=== PATIENT | female | born 1950 | race Caucasian/White ===

== ENCOUNTER → 2024-04-06 13:30 | Outpatient (REF) | payer MEDICARE, SELFPAY | LOC: RAD 13:30 | PROVIDERS: ATTENDING PHYSICIAN Physician Assistant Medical | DX: R10.32 Left lower quadrant pain (principal) | CPT/HCPCS: 74178; Q9967 ==

== ENCOUNTER → 2024-12-08 11:15 | Outpatient (REF) | payer MEDICARE, SELFPAY | LOC: WDC 11:15 | PROVIDERS: ATTENDING PHYSICIAN Physician Assistant Medical | DX: M81.0 Age-related osteoporosis without current pathological fracture (principal); Z12.31 Encounter for screening mammogram for malignant neoplasm of breast | CPT/HCPCS: 77063; 77067; 77080 ==

== ENCOUNTER 2025-02-27 04:46 | Inpatient (IN) | payer MEDICARE, SELFPAY ==
[2025-02-27] VITALS (13 sets, daily range): BP systolic 72–174; BP diastolic 52–84; BMI 28.3; BMI 29.2; BMI 29.4
--- NOTE | 2025-02-27 01:36 | ED.GENMED ---
History of Present Illness
<Barbara Bradley PA-C - Last Filed: 02/27/25 06:46>
General
Chief Complaint: Abdominal Pain
Source: patient
Exam Limitations: none
Time Seen by Provider: 02/27/25 01:35
Nursing documentation reviewed up to this point in time: agreed with
History of Present Illness
History of Present Illness:
74-year-old female with past medical history of diverticulitis, high blood pressure, presents to the ER today with concerns of left lower quadrant abdominal pain. She reports that this started yesterday afternoon. She describes the pain as similar
to previous episode of diverticulitis. During a time, she was treated for amoxicillin for 10 days and she reports that she had leftover pills from previous episode and she started taking it and reported mild improvement but then her pain got a lot
worse and she could not sleep. She reported some mild relief with a heating pad. She denies any rectal bleeding, dark tarry stools, urinary symptoms, chest pain, shortness of breath. She denies any flank pain. She reports decrease in appetite
and has not been eating much, she reports that she has been trying to stick to a bland diet. She mentions feeling cold intermittently but denies any fever. Atrial fibrillation was documented in her chart however patient denies any history of this.
Past History
<Barbara Bradley PA-C - Last Filed: 02/27/25 06:46>
Past History
ED Past Medical History: Arrthythmia (afib), HTN and Hypercholesterolemia
Social History
Tobacco: Smoker
Alcohol: Occasional
Personal:
Living: with family
Review of Systems
<Barbara Bradley PA-C - Last Filed: 02/27/25 06:46>
Review of Systems
All Other Systems: ROS reviewed and negative except as documented in HPI and ROS
Phy Exam
<Barbara Bradley PA-C - Last Filed: 02/27/25 06:46>
Physical Exam
Physical Exam:
General: Patient is well appearing and in no acute distress; non-toxic
Skin: Warm and dry, no rashes or lesions
Head: Normocephalic, atraumatic
Eyes: Sclera non-icteric. EOMs intact.
Cardiac: Regular rate and rhythm, no murmurs
Pulm: Normal respiratory effort, no wheezes, rales, and rhonchi
Abdomen: LLQ tenderness to palpation with guarding no rebound tenderness
Neuro: CN II-XII intact, no focal neurologic deficits.
Psychiatric: Appropriate mood and affect.
Sepsis
<Barbara Bradley PA-C - Last Filed: 02/27/25 06:46>
Sepsis Screening
Sepsis Assessment: Sepsis
Sepsis Screen
Sepsis Screen: Sepsis
Date: 02/27/25
Time: 06:46
Course
<Barbara Bradley PA-C - Last Filed: 02/27/25 06:46>
Orders/Labs/Results
Orders:
Orders
02/27/25 01:51
CT Abd/Pel (IV only)-DH only Urgent
Comment:
Reason For Exam: LLQ pain
02/27/25 01:54
Ketorolac [Toradol] 15 mg IV NOW STA
02/27/25 01:56
0.9% Sodium Chloride 500 ml [Nss] 500 ml IV BOLUS
02/27/25 02:04
Complete Blood Count/With Diff Urgent
Comprehensive Metabolic Panel Urgent
Lipase Urgent
02/27/25 03:59
0.9% Sodium Chloride 500 ml [Nss] 500 ml IV BOLUS
Piperacillin/Tazo 4.5 Gram [Zosyn] 4.5 gram in 100 ml IV NOW
02/27/25 04:33
Admit/Transfer Patient As Directed
Co-Sign Provider:
Level of Care: Inpatient admission
Assign to:: Telemetry
Physician / Group: Phil
Diagnosis: Acute Sigmoid Diverticulitis, L Adnexal Abscess
Reason for Telemetry: Arrhythmia
Date to Stop Telemetry: 03/02/25
Time to Stop Telemetry: 11:00
Reason for Hospitalization: Acute Sigmoid Diverticulitis, L Adnexal Abscess
Expected length of stay greater than two midnights?: Yes
ELOS- Estimated Length of Stay in days: 4
I certify the patient meets the requirements for IP care: Yes
PRN Pain Medication Management As Directed
May give lesser potent ordered pain med per pt: Yes
preference::
Protocol:: Medication orders for pain may be administered in a
manner that supports deferring to patient preference
when the pt is:
- Requesting an ordered lesser potent pain medication.
Least to most potent pain medications are defined
as: acetaminophen < NSAID < tramadol < opioids
(morphine, oxycodone, hydromorphone).
- Requesting a lesser dose of the same medication IF
ORDERED.
- Requesting a less intrusive route of administration
if both routes are prescribed by the provider (PO <
IV).
02/27/25 04:34
Code Status As Directed
Resuscitation Status: Do not resuscitate
Reached after discussion with pt or family/Healthcare POA: Yes
02/27/25 04:35
DNR Bracelet Application ONCE
02/27/25 04:56
Acetaminophen [Tylenol] 650 mg PO Q4HPRN PRN
HYDROmorphone [Dilaudid] 0.5 mg IV Q4HPRN PRN
02/27/25 04:56
ColoRectal Surgery Consult Routine
Consulting Provider: Vasu Junior
Was physician already notified: Yes
Reason for consult: Acute Sigmoid Diverticulitis, L Adnexal Abscess
CUTTING DEPARTMENT SUPERVISOR CONSULT Routine
Consulting Provider: Brielle Gunderson
Was physician already notified: Yes
Reason for consult: Acute Sigmoid Diverticulitis, L Adnexal Abscess
Activity As Directed
Activity Level: Ambulate
With Assistance
EKG with chest pain [ECG as needed] As Directed
ECG as needed for:: Chest Pain
I/O [Intake/ Output] As Directed
Frequency: Per unit guidelines
Pneumatic Compression Sleeves As Directed
Type: Knee high
Vital Signs As Directed
Frequency: Per unit guidelines
Weight As Directed
Frequency: Daily
Oxygen Therapy [O2 Therapy] [RESP] Routine
Titrate/Wean O2 to maintain O2 sat greater than (%): 94
DX Deep Vein Thrombosis Video Routine
02/27/25 05:00
Lactated Ringers [Lr] 1,000 ml IV 100 mls/hr
02/27/25 05:24
Urinalysis Reflex To Culture Urgent
Date Specimen was Collected: 02/27/25
Time Specimen was Collected: 01:58
02/27/25 Breakfast
NPO
Allow oral meds: Yes
Allow clear liquids: Sips of Clears
02/27/25 08:00
Atenolol [Tenormin] 100 mg PO DAILY
Atorvastatin [Lipitor] 20 mg PO DAILY
Ketorolac [Toradol] 10 mg IV Q6HPRN PRN
Losartan [Cozaar] 50 mg PO DAILY
02/27/25 10:00
Piperacillin/Tazo 3.375 Gram [Zosyn] 3.375 gram in 50 ml IV Q6H
02/27/25 18:00
Enoxaparin Sodium [Lovenox] 40 mg SC QPM
02/28/25 06:00
Basic Metabolic Panel IN AM
Complete Blood Count/No Diff IN AM
03/02/25 11:00
DC Protocol for Telemetry ONCE
Abnormal Lab Results
02/27/25
02:04
WBC 23.8 H 10^3/uL
(4.8-10.8)
MCHC 32.9 L g/dL
(33.0-37.0)
MPV 10.8 H fL
(7.4-10.4)
Abs Immat Gran (auto) 0.2 H 10^3/uL
(0-0.05)
Absolute Neuts (auto) 20.1 H 10^3/uL
(1.4-6.5)
Absolute Monos (auto) 1.5 H 10^3/uL
(0.1-0.6)
Immature Gran % 0.6 H %
(0-0.5)
Neutrophils % 84.7 H %
(42.2-75.2)
Lymphocytes % 7.8 L %
(20.5-51.1)
Sodium 131 L mmol/L
(135-145)
Chloride 97 L mmol/L
(98-107)
BUN 18 H mg/dl
(7-17)
Creatinine 1.1 H mg/dL
(0.6-1.0)
Glucose 108 H mg/dl
(70-99)
02/27/25 02:04
02/27/25 02:04
Vital Signs
Initial and Last Documented VS:
Initial Vital Signs
Temp Pulse Resp BP Pulse Ox
98.2 F 96 20 174/84 95
02/27/25 01:31 02/27/25 01:31 02/27/25 01:31 02/27/25 01:31 02/27/25 01:31
Last Documented Vital Signs
Temp Pulse Resp BP Pulse Ox
98.2 F 73 14 112/54 96
02/27/25 01:31 02/27/25 06:30 02/27/25 06:30 02/27/25 05:00 02/27/25 06:30
<Toni Mendosa Michelle, DO - Last Filed: 02/27/25 04:05>
Orders/Labs/Results
Orders:
Orders
02/27/25 01:51
CT Abd/Pel (IV only)-[facility] only Urgent
Comment:
Reason For Exam: LLQ pain
02/27/25 01:54
Ketorolac [Toradol] 15 mg IV NOW STA
02/27/25 01:56
0.9% Sodium Chloride 500 ml [Nss] 500 ml IV BOLUS
02/27/25 02:04
Complete Blood Count/With Diff Urgent
Comprehensive Metabolic Panel Urgent
Lipase Urgent
02/27/25 03:59
0.9% Sodium Chloride 500 ml [Nss] 500 ml IV BOLUS
Piperacillin/Tazo 4.5 Gram [Zosyn] 4.5 gram in 100 ml IV NOW
02/27/25 04:33
Admit/Transfer Patient As Directed
Co-Sign Provider:
Level of Care: Inpatient admission
Assign to:: Telemetry
Physician / Group: Phil
Diagnosis: Acute Sigmoid Diverticulitis, L Adnexal Abscess
Reason for Telemetry: Arrhythmia
Date to Stop Telemetry: 03/02/25
Time to Stop Telemetry: 11:00
Reason for Hospitalization: Acute Sigmoid Diverticulitis, L Adnexal Abscess
Expected length of stay greater than two midnights?: Yes
ELOS- Estimated Length of Stay in days: 4
I certify the patient meets the requirements for IP care: Yes
PRN Pain Medication Management As Directed
May give lesser potent ordered pain med per pt: Yes
preference::
Protocol:: Medication orders for pain may be administered in a
manner that supports deferring to patient preference
when the pt is:
- Requesting an ordered lesser potent pain medication.
Least to most potent pain medications are defined
as: acetaminophen < NSAID < tramadol < opioids
(morphine, oxycodone, hydromorphone).
- Requesting a lesser dose of the same medication IF
ORDERED.
- Requesting a less intrusive route of administration
if both routes are prescribed by the provider (PO <
IV).
02/27/25 04:34
Code Status As Directed
Resuscitation Status: Do not resuscitate
Reached after discussion with pt or family/Healthcare POA: Yes
02/27/25 04:35
DNR Bracelet Application ONCE
02/27/25 04:56
Acetaminophen [Tylenol] 650 mg PO Q4HPRN PRN
HYDROmorphone [Dilaudid] 0.5 mg IV Q4HPRN PRN
02/27/25 04:56
ColoRectal Surgery Consult Routine
Consulting Provider: Vasu Junior
Was physician already notified: Yes
Reason for consult: Acute Sigmoid Diverticulitis, L Adnexal Abscess
CUTTING DEPARTMENT SUPERVISOR CONSULT Routine
Consulting Provider: Brielle Gunderson
Was physician already notified: Yes
Reason for consult: Acute Sigmoid Diverticulitis, L Adnexal Abscess
Activity As Directed
Activity Level: Ambulate
With Assistance
EKG with chest pain [ECG as needed] As Directed
ECG as needed for:: Chest Pain
I/O [Intake/ Output] As Directed
Frequency: Per unit guidelines
Pneumatic Compression Sleeves As Directed
Type: Knee high
Vital Signs As Directed
Frequency: Per unit guidelines
Weight As Directed
Frequency: Daily
Oxygen Therapy [O2 Therapy] [RESP] Routine
Titrate/Wean O2 to maintain O2 sat greater than (%): 94
DX Deep Vein Thrombosis Video Routine
02/27/25 05:00
Lactated Ringers [Lr] 1,000 ml IV 100 mls/hr
02/27/25 05:24
Urinalysis Reflex To Culture Urgent
Date Specimen was Collected: 02/27/25
Time Specimen was Collected: 01:58
02/27/25 Breakfast
NPO
Allow oral meds: Yes
Allow clear liquids: Sips of Clears
02/27/25 08:00
Atenolol [Tenormin] 100 mg PO DAILY
Atorvastatin [Lipitor] 20 mg PO DAILY
Ketorolac [Toradol] 10 mg IV Q6HPRN PRN
Losartan [Cozaar] 50 mg PO DAILY
02/27/25 10:00
Piperacillin/Tazo 3.375 Gram [Zosyn] 3.375 gram in 50 ml IV Q6H
02/27/25 18:00
Enoxaparin Sodium [Lovenox] 40 mg SC QPM
02/28/25 06:00
Basic Metabolic Panel IN AM
Complete Blood Count/No Diff IN AM
03/02/25 11:00
DC Protocol for Telemetry ONCE
Abnormal Lab Results
02/27/25
02:04
WBC 23.8 H 10^3/uL
(4.8-10.8)
MCHC 32.9 L g/dL
(33.0-37.0)
MPV 10.8 H fL
(7.4-10.4)
Abs Immat Gran (auto) 0.2 H 10^3/uL
(0-0.05)
Absolute Neuts (auto) 20.1 H 10^3/uL
(1.4-6.5)
Absolute Monos (auto) 1.5 H 10^3/uL
(0.1-0.6)
Immature Gran % 0.6 H %
(0-0.5)
Neutrophils % 84.7 H %
(42.2-75.2)
Lymphocytes % 7.8 L %
(20.5-51.1)
Sodium 131 L mmol/L
(135-145)
Chloride 97 L mmol/L
(98-107)
BUN 18 H mg/dl
(7-17)
Creatinine 1.1 H mg/dL
(0.6-1.0)
Glucose 108 H mg/dl
(70-99)
02/27/25 02:04
02/27/25 02:04
Vital Signs
Initial and Last Documented VS:
Initial Vital Signs
Temp Pulse Resp BP Pulse Ox
98.2 F 96 20 174/84 95
02/27/25 01:31 02/27/25 01:31 02/27/25 01:31 02/27/25 01:31 02/27/25 01:31
Last Documented Vital Signs
Temp Pulse Resp BP Pulse Ox
98.2 F 73 14 112/54 96
02/27/25 01:31 02/27/25 06:30 02/27/25 06:30 02/27/25 05:00 02/27/25 06:30
Stevenlt;Barbara Bradley PA-C - Last Filed: 02/27/25 06:46>
MDM/Problems Addressed
Differential Diagnosis Includes:
ddx include perforated diverticulitis, intra-abdominal abscess, appendicitis, gastroenteritis
MDM/Problems Addressed:
74-year-old female presents to the ER today with concerns of left lower quad abdominal pain. Patient states it feels like when she had diverticulitis. Patient has had a hysterectomy and she is not sure if they took the ovaries or not. She denies
any other intra-abdominal surgery. Physical exam, patient well-appearing no acute distress. She is afebrile. She does have left lower quadrant tenderness to palpation with guarding. CT scan shows evidence of intra abdominal abscess with acute
diverticulitis with adnexal abscess likely related to perforated diverticulitis. Patient started Zosyn. Case sent over to colorectal and gynecology via [facility] text who are aware of patient and will see patient in the morning for consultation.
Patient symptoms well-controlled at this time. Patient referred for admission
Chronic conditions affecting care:
A-fib, hypertension
<Barbara Bradley PA-C - Last Filed: 02/27/25 06:46>
*Pulse Oximetry
SaO2: 95
Oxygen Mode of Delivery: Room air
Patient hypoxic: no
*Critical Care Note
Total Time (30-74mins, 75-104mins- exclusive of procedures): Not Applicable
Data Reviewed
Review of Other/Old Records Reveals: Records (Reviewed ER physician 01/19/22)
Source: patient
ED Attending Note
<Barbara Bradley PA-C - Last Filed: 02/27/25 06:46>
-
Portions of this chart may have been created with voice recognition software.� Occasional wrong word or��sound alike� substitutions may have occurred due to the inherent limitations of voice recognition software.
<Toni Martinez DO - Last Filed: 02/27/25 04:05>
ED Attending Note
Patient seen and examined by attending physician: Yes
I performed the substantive portion of visit, reviewed & personally made and approve the management plan that is documented in note by myself or URI.: Yes
ED Attending Note:
I evaluated the patient at bedside. She appears fairly comfortable currently however CT imaging is concerning for abscess left lower quadrant near the sigmoid/ovary. White count 23.8. Pending IV antibiotics/admission.
Discharge Plan
Departure
Patient Disposition: Admit
Date of Disposition: 02/27/25
Time of Disposition: 04:05
Admit to: Med/Surg
Presentation/result/management discussed w/ accepting MD/DO: Hospitalist
Patient with high blood pressure during this ER visit?: Yes
Condition: Good
Discharge Problem:
Diverticulitis of colon with perforation, Left tubo-ovarian abscess
Interventions
Interventions:
*Risk Screen - Suicide Last Done: 02/27/25 01:31
*General Assessment Last Done: 02/27/25 01:52
*Neglect/Abuse Screening Last Done: 02/27/25 01:52
*ED COVID-19 Vaccine History Last Done: 02/27/25 01:52
*ED Influenza Vaccine History Last Done: 02/27/25 01:52
[facility] Fall Risk Assessment Tool Last Done: 02/27/25 01:52
[facility]rmel[facility]-[id number] Assessment Last Done: 02/27/25 01:52
[2025-02-27] MEDS: TORADOL 15 MG IV (02:06)
[2025-02-27] MEDS: NSS 500 IV ×2 (02:06→03:10)
[2025-02-27 02:41] LABS: Hematocrit 40.7 % (37.0-47.0); Hemoglobin 13.4 g/dL (12.0-16.0); Mean Corp Hgb Conc. 32.9 g/dL (33.0-37.0); Mean Corpuscular Volume 87.3 fL (81.0-99.0); Platelet Count 281 10^3/uL (130-400); Red Cell Dist. Width 14.2 % (11.5-14.5)
[2025-02-27 03:00] LABS: ALT (SGPT) 14 U/L (0-35); AST (SGOT) 17 U/L (14-36); Albumin 3.8 g/dl (3.5-5.0); Alkaline Phosphatase 106 U/L (38-126); Blood Urea Nitrogen 18 mg/dl (7-17); Calcium 8.5 mg/dl (8.4-10.2); Carbon Dioxide 23 mmol/L (22-30); Chloride 97 mmol/L (98-107); Estimated Creatinine Clearance 41 ml/min; Glucose 108 mg/dl (70-99); Lipase 132 U/L (23-300); Potassium 3.5 mmol/L (3.5-5.1); Sodium 131 mmol/L (135-145); Total Protein 6.8 g/dl (6.3-8.2); eGFR 52.73
[2025-02-27] MEDS: ZOSYN 100 IV (04:14)
--- NOTE | 2025-02-27 04:24 | HPS.HSE ---
Family Physician
-
Family Physician: Sonia Barnett
Chief Complaint
-
Abd Pain
History of Present Illness
Patient is a 74y F with PMH significant for hypertension and diverticular disease who presents to ED complaining of LLQ abdominal pain. Patient states that she developed pain on Thursday afternoon. Pain in the LLQ with some radiation into the L
lower back. Patient denies any associated N/V/D, fevers / chills or urinary complaints. Patient reports h/o similar symptoms in March of this year which improved with (almost) 10 days of oral antibiotics.
Patient states that she started taking the abx (Augmentin) that she had 'left over' when this pain began. She states that she took 2-3 doses total. She noted no significant improvement in her symptoms and presented to the ED this evening for
further evaluation.
At the time of my examination, patient is resting comfortably and has no residual pain after IV Toradol.
Medical History
Past Medical History
Past Medical History: Reports Other
Additional Past Medical History:
Hypertension
Osteoporosis
Diverticular Disease
Skin Cancer
Past Surgical History: Reports Other
Additional Past Surgical History:
Hysterectomy
Pilonidal Cyst
Mohs Surgery
Social History
Tobacco: Smoker (Current every day smoker. 1/2 ppd with total of 30 pack years use.)
Alcohol: None
Family History
Family History: Not pertinent
Allergies / Home Medications
Allergies reflects when Allergies were last updated in [facility].
Home Medications with original date entered in [facility]
Allergy/Medication List:
Allergies
Allergy/AdvReac Type Severity Reaction Status Date / Time
No Known Allergies Allergy Verified 02/27/25 01:34
Home Medications
Losartan 50 mg PO DAILY 04/28/18
atenolol 50 mg tablet 100 mg PO DAILY 04/28/18
simvastatin 40 mg tablet 40 mg PO DAILY 04/28/18
hydrochlorothiazide 12.5 mg tablet 12.5 mg PO DAILY 02/27/25
ibandronate 150 mg tablet 150 mg PO ONCE 02/27/25
Review of Systems
-
History Source: Patient
A 12 point ROS was completed and negative except as noted: Yes
Constitutional: Denies Fever or Chills
Respiratory: Denies Cough or Trouble Breathing
Cardiac: Denies Chest Pain or Palpitations
Abdomen/GI: Reports Abdominal Pain; Denies Nausea, Vomiting or Diarrhea
: Denies Dysuria or Frequency
Musculoskeletal: Denies Joint Pain or Edema
Neurological: Denies Dizzy or Headache
Psych: Denies Depression or Anxiety
Physical Exam
Vital Signs
Vital Signs
Temp Pulse Resp BP Pulse Ox
98.2 F 82 20 152/70 95
02/27/25 01:31 02/27/25 02:30 02/27/25 02:30 02/27/25 01:48 02/27/25 02:30
Physical Exam
General: Other (74y F in no acute distress.)
HEENT: Moist mucous membranes and PERRLA
Respiratory: Clear; No Wheezes, Rales or Rhonchi
Cardiac: S1/S2 and Regular Rhythm; No Murmur
GI: Soft, Non Distended, Normal Bowel Sounds and Other (Pos LLQ tenderness on exam. No rebound / guarding. Bowel sounds are diminished but present.)
Musculoskeletal: No Clubbing, No Cyanosis and No Edema
Neuro: AO x 3
Laboratory Results
-
02/27/25 02:04
02/27/25 02:04
Laboratory Results
Total Bilirubin 0.8 mg/dl (0.2-1.3) 02/27/25 02:04
AST 17 U/L (14-36) 02/27/25 02:04
ALT 14 U/L (0-35) 02/27/25 02:04
Alkaline Phosphatase 106 U/L (38-126) 02/27/25 02:04
Lipase 132 U/L (23-300) 02/27/25 02:04
Impression/Plan
-
A/P: Patient is a 74y F with PMH significant for hypertension and diverticular disease who presents to ED complaining of LLQ x 2 days.
Acute Sigmoid Diverticulitis
Left Adnexal Abscess secondary to the above
- Admit for further evaluation and treatment.
- NPO, IVFs, pain control and supportive care.
- Continue IV Zosyn and follow for clinical improvement.
- Colorectal Surgery and REAL ESTATE ASSISTANT consulted for further recommendations.
- ? operative intervention v IR drain placement v other.
- Follow temp curve and monitor for any new / worsening symptoms.
Benign Hypertension
- Stable. Hold HCTZ acutely.
- Continue atenolol / losartan with holding parameters.
DVT Prophylaxis: Lovenox
Code Status: DNR
[2025-02-27 04:36] LABS: Nucleated Red Blood Cells % 0 %
[2025-02-27] MEDS: LR 1000 IV ×2 (05:28→17:31)
[2025-02-27] MEDS: DILAUDID 0.5 MG IV (06:27)
[2025-02-27 06:39] LABS: Urine Character Clear (Clear)
[2025-02-27] MEDS: TENORMIN 100 MG PO (09:15)
[2025-02-27] MEDS: LIPITOR 20 MG PO (09:15)
[2025-02-27] MEDS: ZOSYN 50 IV ×3 (09:15→22:02)
[2025-02-27] MEDS: COZAAR 50 MG PO (09:15)
--- NOTE | 2025-02-27 09:52 | CON.MD ---
Addendum entered and electronically signed by Olesya Beck MD 02/27/25 11:59:
edit to add: patient had unilateral oophorectomy.
Original Note:
CC / HPI / ROS
-
Chief Complaint:
abd pain
History of Present Illness:
No is a 74 yo F with hx of HTN, HLD, and diverticulosis presenting with abdominal pain found to have a pelvic abscess. She denies feeling febrile. Hx of hysterectomy and unilateral salpingectomy in her 30s, but unsure which side is remaining.
She has not seen a [employer] since her hysterectomy. She denies PMB.
Review of Systems:
Neg: fever, chills, PMB
Pos: abd pain
Current/Past Med/Surg History
-
Respiratory: No Issues Reported
Vascular / Heart: High Blood Pressure
Neurological / Brain / Spinal Cord: No Issues Reported
Gastrointestinal/Bowel/Digestive: Other (diverticulosis)
Musculoskeletal: No Issues Reported
Endocrine: No Issues Reported
Blood: No Issues Reported
Operations / Procedures
Past Surgical History: Gynecological (hysterectomy)
Medications / Supplements
Medication / Herbal Supplements: Yes
�Medication �Instructions �Recorded
atenolol 50 mg tablet 100 mg PO DAILY 04/28/18
simvastatin 40 mg tablet 40 mg PO DAILY 04/28/18
acetaminophen 500 mg tablet 1,000 mg PO BID PRN mild pain 02/27/25
hydrochlorothiazide 12.5 mg tablet 12.5 mg PO DAILY 02/27/25
ibandronate 150 mg tablet 150 mg PO MONTHLY 02/27/25
losartan 50 mg tablet 100 mg PO DAILY 02/27/25
Allergies
Allergies: No
Allergy/AdvReac Type Severity Reaction Status Date / Time
No Known Allergies Allergy Verified 02/27/25 01:34
Vital Signs and Labs
-
Vital Signs and Labs:
Vital Signs
Temp Pulse Resp BP Pulse Ox
98.6 F 74 18 122/61 92
02/27/25 07:27 02/27/25 07:27 02/27/25 07:27 02/27/25 07:27 02/27/25 07:27
Lab Results
02/27/25 02:04
02/27/25 02:04
Sodium 131 mmol/L (135-145) L 02/27/25 02:04
Potassium 3.5 mmol/L (3.5-5.1) 02/27/25 02:04
BUN 18 mg/dl (7-17) H 02/27/25 02:04
Glucose 108 mg/dl (70-99) H 02/27/25 02:04
Calcium 8.5 mg/dl (8.4-10.2) 02/27/25 02:[address]
- Development of left adnexal abscess related to localized perforation of sigmoid colitis. This measures 4 cm AP by 3 cm transverse by 5.8 cm craniocaudal. Between the abscess and the sigmoid colon there is a fistulous communication measuring
approximately 1.6 cm in diameter. The abscess cavity is contiguous with the left ovary.
Data Reviewed / Physical Exam
-
Vital Signs
Temp Pulse Resp BP Pulse Ox
98.6 F 74 18 122/61 92
02/27/25 07:27 02/27/25 07:27 02/27/25 07:27 02/27/25 07:27 02/27/25 07:27
Lab Results
02/27/25
02:04
Glucose 108 H
Physical Exam:
General: no acute distress
Lungs: no increased work of breathing
Cards: regular HR
Extr: No edema or calf tenderness
Assessemnt/Plan
-
No is a 74 yo F with diverticulosis presenting with pelvic abscess concerning for diverticulitis.
Plan:
-Care per primary team
-Continue IV antibiotics.
-Continue NPO for planned IR drainage
-Consider surgical intervention if, no improvement.
-Can consider pelvic US to monitor for interval improvement or poss pelvic mass.
--- NOTE | 2025-02-27 10:19 | CON.CRS ---
Consultation
-
Date/Time Consultation Requested: 02/27/2025, 04:56
Date/Time Consultation Performed: 02/27/2025, 9:30
Requesting Provider: Angel Luis Villarreal DO
Performing Provider: Freddie Mead
Reason for Consultation: diverticulitis
Medical History
-
Chief Complaint: diverticulitis
History of Present Illness:
74-year-old female, with a past medical history of 1 prior to diverticulitis as well as a hysterectomy, presents to [place] ER due to abdominal pain. She states the pain was in the left lower quadrant and started 2 days ago in the afternoon. Denies
nausea vomiting. Denies fevers chills. Denies loose stools. Her symptoms were similar to when she had an attack of diverticulitis in March 2024 and she had 10 days of antibiotics. She had some leftover antibiotics and started taking them
yesterday. Due to increasing pain and not being able to sleep at night, she went to the ER. Her last colonoscopy at [facility] was in 2013 which showed erythematous and eroded mucosa in the terminal ileum. Nodular mucosa at the ileocecal valve.
Erythematous mucosa 20 cm proximal to the anus. One 4 mm polyp in the rectum. There was also moderate diverticulosis in the sigmoid colon. Pathology on the terminal EM which showed active ileitis moderate to severe. The ascending colon biopsy
showed no recognizable significant pathologic alteration. Ileocecal valve showed small intestine mucosa with marked inflammation chronic and acute with erosive features. The patchy erythema at 20 cm showed benign colonic mucosa with passive
vascular congestion. She apparently had a colonoscopy after this several years ago but the report is not available in our system. She had a CT in March 2024 that showed 'Moderate wall thickening of the terminal ileum concerning for inflammatory
bowel disease such as Crohn's disease.' as well as sigmoid diverticulitis.
In the ER her WBC is 23.8. Her vitals are normal. CT A/P shows development of left adnexal abscess related to localized perforation of sigmoid colitis. This measures 4 cm AP by 3 cm transverse by 5.8 cm craniocaudal. Between the abscess and the
sigmoid colon there is a fistulous communication measuring approximately 1.6 cm in diameter. The abscess cavity is contiguous with the left ovary. Given this, we have been consulted for further surgical opinon.
Past Medical History
Past Medical History: Other (Hypertension, Osteoporosi,s Diverticular Disease, Skin Cancer)
Past Surgical History: Other (Hysterectomy, Pilonidal Cyst, Mohs Surgery)
Social History
Tobacco: Smoker
Alcohol: None
Family History
Family History: Reviewed & Not Pertinent
Allergies / Home Medications
Allergy/AdvReac Type Severity Reaction Status Date / Time
No Known Allergies Allergy Verified 02/27/25 01:34
�Medication �Instructions �Recorded �Confirmed �Type
atenolol 50 mg tablet 100 mg PO DAILY 04/28/18 02/27/25 History
simvastatin 40 mg tablet 40 mg PO DAILY 04/28/18 02/27/25 History
acetaminophen 500 mg tablet 1,000 mg PO BID PRN mild pain 02/27/25 02/27/25 History
hydrochlorothiazide 12.5 mg tablet 12.5 mg PO DAILY 02/27/25 02/27/25 History
ibandronate 150 mg tablet 150 mg PO MONTHLY 02/27/25 02/27/25 History
losartan 50 mg tablet 100 mg PO DAILY 02/27/25 02/27/25 History
Review of Systems
-
History Source: Patient
Abdomen/GI: Abdominal Pain
A 10 point review of systems was completed, and was negative except as per HPI.
Physical Exam
Vital Signs
Temp 98.6 F 02/27/25 07:27
Pulse 74 02/27/25 07:27
Resp Rate 18 02/27/25 07:27
Blood pressure 122/61 02/27/25 07:27
SaO2 92 02/27/25 07:27
02/26/25 02/27/25 02/28/25
06:59 06:59 06:59
Actual Weight 70 kg
Body Mass Index (BMI) 28.3
Lab Results / Allergies
02/27/25 02:04
02/27/25 02:04
WBC 23.8 10^3/uL (4.8-10.8) H 02/27/25 02:04
Hgb 13.4 g/dL (12.0-16.0) 02/27/25 02:04
Hct 40.7 % (37.0-47.0) 02/27/25 02:04
Plt Count 281 10^3/uL (130-400) 02/27/25 02:04
Abs Immat Gran (auto) 0.2 10^3/uL (0-0.05) H 02/27/25 02:04
Neutrophils % 84.7 % (42.2-75.2) H 02/27/25 02:04
Allergy/AdvReac Type Severity Reaction Status Date / Time
No Known Allergies Allergy Verified 02/27/25 01:34
Physical Exam
General: Well Developed, Well Nourished and No Apparent Distress
GI: Soft and Tender (LLQ- mild to moderate)
Skin: Warm and Dry
Neuro: AO x 3
Psych: Calm
Data Reviewed
-
CT Scan: Image Personally Visualized and interpreted, Report Reviewed by me and Discussed with Patient
Labs: Labs Reviewed by me, Discussed with Physician and Discussed with Patient
Old Records: Reviewed
Assessment / Plan
-
Assessment: 71-year-old female with 1 prior attack diverticulitis Mrs. Strauss, quadrant pain pseudodiverticulum is on CT scan as well as associated left adnexal abscess measuring 4 x 3 x 5.8 cm.
Plan:
-IR for abscess drainage- discussed with Dr. Hayes
-Continue IV antibiotics
-Maintain NPO
-Continue IVFs
-Trend labs
-Obgyn has been consulted
-Recommend GI consult given history of prior CT Mar 2024 (Moderate wall thickening of the terminal ileum concerning for inflammatory bowel disease such as Crohn's disease) and prior colonoscopy in 2013
-No plans for surgery unless she worsens. Surgery would involve a colectomy with likely colostomy.
--- NOTE | 2025-02-27 10:52 | CON.GI ---
Addendum entered and electronically signed by Stephanie Morales DO 02/27/25 14:42:
The patient was seen and examined by me independently in collaboration with the nurse practitioner.
Past medical history/social history/medications/allergies/family history reviewed.
Lab data and imaging data reviewed.
Briefly, No Selby is a 74 y.o. female admitted with perforated sigmoid diverticulitis c/b localized perforation and fistulous communication wiht a 4 x 3 x 5.8 cm abscess cavity contiguous with the left ovary. She is afebrile, leukocytosis
of 23K. CT in March at time of acute diverticulitis showed an approximately 6 cm segment of TI with moderate circumferential wall thickening suggestive of IBD, specifically crohns. Her colonoscopy in 2013 with findings consistent with a new
diagnsis of small bowel crohns, advised to obtain dedicated small bowel imaging and inflammatory markers and was subsequently lost to follow-up. No colonsocopy since that time. She reports some mild constipation over the last year but otherwise,
denies nausea, vomiting, chronic abdominal pain, bloating, diarrhea, melena or hematochezia. She is an active smoker.
She is currently pending IR drainage of abscess. Her exam is fairly benign right now, denies any abdominal pain.
Discussed at length eventual colonoscopy for restaging of disease, dedicated small bowel imaging with CTE or MRE for intiation of maintnance therapy of Crohns disease. Will wait at least 6-8 weeks to perform.
-CRP 239.9
-IR drainage of abscess
-antibiotics
-outpatient colonoscopy in 6-8 weeks
-will obtain labs while she is here to expedite initiation of eventual therapy
GI will sign off, please call with questions.
Original Note:
Consultation
-
Date/Time Consultation Requested: 02/27/25 1045
Date/Time Consultation Performed: 02/27/25 1055
Requesting Provider: Mike Morales MD
Performing Provider: IGNACIO Graves, Iesha Morales DO
Reason for Consultation: abdominal pain, abnormal imaging
Medical History
Chief Complaint / HPI
Chief Complaint: abdominal pain
History of Present Illness:
Pt is a 74yo with hx diverticulosis, HTN, tobacco abuse, hypercholesterolemia, osteoporosis, prior hysterectomy, pilonidal cyst surgery, mohs surgery with onset of LLQ pain with radiation to back. On admission noted with WBC 23,800, Na 131, BUN 18
creat 1.1, glucose [address] A/p with IV contrast with adnexal abscess 4 x 3 x 5.8 cm with localized perforation of diverticulitis there is also fistulous communication 1.6 cm abscess cavity to left ovary . In review with
patient she had attack of diverticulitis in 03/2024. At that time CT with moderate thickening of TI concern for crohns along with mild acute diverticulitis of mid sigmoid without perforation or abscess. Also noted multiple pulm nodules concern for
mets. Last colonoscopy [address] Morris with erythema and eroded mucosa TI, nodular IC valve erythema at 20cm 4 mm rectal polyp, diverticulosis with narrowing with peridiverticular erythema non bleeding hemorrhoids, smal lipoma. Bx with
TI active ileitis with moderate rto severe erosive features with evidence of chronicity with irregularity and blunting other biopsies neg with HP polyp. She was recommended inflammatory marker and MRI but did not proceed.
In review with patient she did not recall finding from 2013. She did not have any further GI issue til LLQ pain and diverticulitis in 03/2024. She was treated with antibiotics and improved. She did not have any GI follow up to discuss
colonoscopy. She then began with LLQ prompting admission now. On admission she contiued with some LLQ pain. Pain initially intermittent now constant. Eating and pain meds may make pain better. Difficulty to say what makes pain worse. No
improvement with Tylenol. She admits to also constipation that had been chronic but denies fever, wt loss, odynophagia, dysphagia, GERD, nausea, vomiting, diarrhea, blood or black in stools. No prior EGD. No NSAID or anticoagulation prior to
admission.
Past Medical History
Past Medical History: HTN and Other (tobacco abuse, osteoporosis , diverticulitis, concern for crohns disease 2013 pt did not recall)
Past Surgical History: Gynecological (hysterectomy ) and Other (pilonidal cyst surgery, mohs surgery )
Social History
Tobacco: Smoker (1/2 PPD)
Alcohol: None
Drug: None
Living: Alone
Employment: Retired
Family History
Family History: Other (no family hx colon CA or polyps, no family hx crohns or UC )
Allergies / Home Medications
Allergy/AdvReac Type Severity Reaction Status Date / Time
No Known Allergies Allergy Verified 02/27/25 01:34
�Medication �Instructions �Recorded
atenolol 50 mg tablet 100 mg PO DAILY 04/28/18
simvastatin 40 mg tablet 40 mg PO DAILY 04/28/18
acetaminophen 500 mg tablet 1,000 mg PO BID PRN mild pain 02/27/25
hydrochlorothiazide 12.5 mg tablet 12.5 mg PO DAILY 02/27/25
ibandronate 150 mg tablet 150 mg PO MONTHLY 02/27/25
losartan 50 mg tablet 100 mg PO DAILY 02/27/25
Review of Systems
-
History Source: Patient
Constitutional: Reports No Symptoms
EENT: Reports No Symptoms
Respiratory: Reports No Symptoms
Cardiac: Reports No Symptoms
Abdomen/GI: Reports Abdominal Pain and Constipated
: Reports No Symptoms
Musculoskeletal: Reports No Symptoms
Skin: Reports No Symptoms
Neurological: Reports No Symptoms
Endocrine: Reports No Symptoms
Hematologic/Lymphatic: Reports No Symptoms
Vital Signs
Temp Pulse Resp BP Pulse Ox
98.6 F 74 18 122/61 92
02/27/25 07:27 02/27/25 07:27 02/27/25 07:27 02/27/25 07:27 02/27/25 07:27
Physical Exam
Exam
General: Well Developed, Well Nourished, No Apparent Distress and Comfortable
HEENT: Normocephalic and Anicteric
Respiratory: Clear
Cardiac: Regular Rhythm
GI: Soft, Non Distended and Tender (mild LLQ after pain meds )
Musculoskeletal: No Clubbing and No Cyanosis
Skin: Warm and Dry
Neuro: Awake, Alert and AO x 3
Psych: Calm
Results
WBC 23.8 10^3/uL (4.8-10.8) H 02/27/25 02:04
Hgb 13.4 g/dL (12.0-16.0) 02/27/25 02:04
Hct 40.7 % (37.0-47.0) 02/27/25 02:04
MCV 87.3 fL (81.0-99.0) 02/27/25 02:04
Plt Count 281 10^3/uL (130-400) 02/27/25 02:04
Absolute Neuts (auto) 20.1 10^3/uL (1.4-6.5) H 02/27/25 02:04
Sodium 131 mmol/L (135-145) L 02/27/25 02:04
Potassium 3.5 mmol/L (3.5-5.1) 02/27/25 02:04
Chloride 97 mmol/L (98-107) L 02/27/25 02:04
Carbon Dioxide 23 mmol/L (22-30) 02/27/25 02:04
BUN 18 mg/dl (7-17) H 02/27/25 02:04
Creatinine 1.1 mg/dL (0.6-1.0) H 02/27/25 02:04
Calcium 8.5 mg/dl (8.4-10.2) 02/27/25 02:04
Total Bilirubin 0.8 mg/dl (0.2-1.3) 02/27/25 02:04
AST 17 U/L (14-36) 02/27/25 02:04
ALT 14 U/L (0-35) 02/27/25 02:04
Alkaline Phosphatase 106 U/L (38-126) 02/27/25 02:04
Lipase 132 U/L (23-300) 02/27/25 02:04
Diagnostic Image Results:
03/2024- CT a/p with and without IV contrast
IMPRESSION: Moderate wall thickening of the terminal ileum concerning for inflammatory bowel disease such as Crohn's disease.
Findings suggesting mild acute diverticulitis of the mid sigmoid colon. No evidence of perforation or abscess formation.
Multiple bilateral pulmonary nodules in the lung bases concerning for pulmonary metastasis until proven otherwise.
Small hepatic hemangioma.
Bilateral too small to characterize hypodense renal lesions likely benign cysts.
Mild left renal atrophy.
02/27/25 CT Abd/Pel (IV only)-DH only
Interval development of a left adnexal abscess related to localized perforation of sigmoid diverticulitis. there is also fistulous communication 1.6 cm abscess cavity to left ovary
05/12/13 colonoscopy [place] - Erythematous and eroded mucosa in the terminal ileum.
Biopsied.
- Nodular mucosa at the ileocecal valve. Biopsied.
- Erythematous mucosa at 20 cm proximal to the anus.
Biopsied.
- One 4 mm polyp in the rectum. Resected and retrieved.
- Moderate diverticulosis in the sigmoid colon. There
was narrowing of the colon in association with the
diverticular opening. Michelle-diverticular erythema was
seen.
- Non-bleeding external hemorrhoids.
- Anal papilla(e) were hypertrophied.
- Small lipoma in the proximal ascending colon.
- Five biopsies were obtained in the ascending colon.
bx active ileitis moderate to severe with erosive features and evidence of chronicity with villous irregularity and blunting, other bx neg with HP polyp
EGD:none
Assessment / Plan
-
Pt is a 74yo with hx diverticulosis, HTN, tobacco abuse, hypercholesterolemia, osteoporosis, prior hysterectomy, pilonidal cyst surgery, mohs surgery with onset of LLQ pain with radiation to back. On admission noted with WBC 23,800, Na [address]
with concern for adnexal abscess 4 x 3 x 5.8 cm with localized perforation of diverticulitis there is also fistulous communication 1.6 cm abscess cavity to left ovary. Pt with prior diverticulitis in March with at that time CT with moderate
thickening of TI concern for crohns along with mild acute diverticulitis of mid sigmoid without perforation or abscess. Also noted multiple pulm nodules concern for mets. Last colonoscopy [address] Morris with erythema and eroded mucosa
TI, nodular IC valve erythema at 20cm 4 mm rectal polyp, diverticulosis with narrowing with peridiverticular erythema non bleeding hemorrhoids, smal lipoma. Bx with TI active ileitis with moderate rto severe erosive features with evidence of
chronicity with irregularity and blunting other biopsies neg with HP polyp. She was recommended inflammatory marker and MRI but did not proceed. CRP 239 on admission.
-LLQ pain -- CT concern for adnexal abscess 4 x 3 x 5.8 cm with localized perforation of diverticulitis there is also fistulous communication 1.6 cm abscess cavity to left ovary.
-leukocytosis
-elevated CRP 239.9
-diverticulitis 03/2024 improved with antibiotics
-concern for hx crohns with abnormal colonoscopy [address] in March with TI thickening
-pulm nodules with concern for mets on prior CT 03/2024
other med problems:
diverticulosis, HTN, tobacco abuse, hypercholesterolemia, osteoporosis, prior hysterectomy, pilonidal cyst surgery, mohs surgery
PLAN:
etiology of abscess relate to diverticulitis vs crohns vs other
plan for IR drainage
will review with Dr. Morales-- will need eventual colonoscopy when improved from current abscess
no role for steroid with current abscess
discussed with patient need for follow up as lost in follow up in 2013 with prior colonoscopy
diet per surgery
cont abx
appreciate CR input
for UPHOLSTERY CLEANER eval with ? fistula to left ovary- await input
agree with Lovenox as if IBD high risk for DVT
pain control per hospitalist
-
-
Thank you for consultation and allowing me to participate in the patient's care. Please call the enroute controller GI physician during the after hours with any questions or concerns.
--- NOTE | 2025-02-27 11:17 | CM ---
Chart reviewed and spoke with patient at ED bedside
Lives alone in 1 [place] no HETAL 4 years ago
Has her son and grandchildren nearby
Independent with ADLs and ambulation
Drives
no DME
PCP Virgilio Barnett
[facility] [address]
no VN nor SNF
DCP is to go home
CM will continue to follow up for any dcp needs
[2025-02-27 12:23] LABS: INR 1.33; PT 16.6 Sec (11.4-14.6)
--- NOTE | 2025-02-27 13:43 | W.PN.HOSP.TC ---
Today's Communication/Plan
-
Continue IV antibiotics
IR drainage
Assessment / Plan
Assessment / Plan
74-year-old female with abdominal pain. She had similar symptoms in March which improved with [address] abdomen pelvis-left adnexal abscess related to the original sigmoid diverticulitis. 4 into 3 and a 5.8 cm between the abscess and the sigmoid colon there is a fistulous communication measuring approximately 1.6 cm the abscess cavity is
contiguous with the left ovary
[facility]: S1-S2 normal
Chest: CTA B/L
Abdomen: Soft,, NO Left sided tenderness now, Bowel sounds present
Extremities: No edema
# Acute sigmoid diverticulitis with a left adnexal abscess
N.p.o. with IV fluids and pain control
Continue Zosyn
Colorectal surgery and PET ADOPTION COUNSELOR consulted
IRAD consulted for drain
Last colonoscopy was in 2013-patient admits to not following up after that. Biopsy showed active ileitis
Follow clinically
Discussed with PET ADOPTION COUNSELOR. Ultrasound of the pelvis if patient does not improve
# Mild hyponatremia-follow
# Paroxysmal atrial fibrillation-patient stated she had it once long time ago and does not take any anticoagulation-no EKGs or rhythm strips available which documents A-fib. Needs outpatient cardiology follow-up
# Acute kidney injury-follow with IV fluids
# Hypertension-continue atenolol and losartan. Hold hydrochlorothiazide
# Hyperlipidemia-continue statin
# Osteoporosis on ibandronate as outpatient
# Smoker-cessation counseling
# DVT prophylaxis Lovenox
# DNR status
Discussed with PET ADOPTION COUNSELOR
Discussed with colorectal surgery
Discussed with nursing
Part of this note was created using voice recognition system. Occasional wrong word or��sound alike� substitutions may have inadvertently occurred due to the inherent limitations of voice recognition software. If noted kindly bring it to my
attention for correction.
Anticipated Discharge: > 48 hours
Subjective/Interval History
-
Date of Service: February 27, 2025
Objective Data
-
Labs:
Laboratory Results
02/27/25 02/27/25
02:04 11:52
WBC 23.8 H
Hgb 13.4
Hct 40.7
Plt Count 281
PT 16.6 H
INR 1.33
Sodium 131 L
Potassium 3.5
Chloride 97 L
Carbon Dioxide 23
BUN 18 H
Creatinine 1.1 H
Glucose 108 H
Calcium 8.5
Total Bilirubin 0.8
AST 17
ALT 14
Alkaline Phosphatase 106
Vital Signs:
Vital Signs
Temp Pulse Resp BP Pulse Ox
98.3 F 70 16 136/62 96
02/27/25 12:39 02/27/25 12:39 02/27/25 12:39 02/27/25 12:39 02/27/25 12:39
[2025-02-27 15:29] LABS: Blood Urea Nitrogen 15 mg/dl (7-17); Calcium 8.3 mg/dl (8.4-10.2); Carbon Dioxide 20 mmol/L (22-30); Chloride 104 mmol/L (98-107); Estimated Creatinine Clearance 44 ml/min; Glucose 97 mg/dl (70-99); Potassium 4.0 mmol/L (3.5-5.1); Sodium 131 mmol/L (135-145); eGFR 59.12
[2025-02-27] MEDS: LOVENOX 40 MG SC (17:33)
[2025-02-28 03:01] VITALS: BP 142/67
[2025-02-28] MEDS: LR 1000 IV (04:45)
[2025-02-28] MEDS: ZOSYN 50 IV ×4 (04:46→22:05)
[2025-02-28 06:00] VITALS: BMI 29.4
[2025-02-28 07:28] VITALS: BP 141/66
[2025-02-28] MEDS: TENORMIN 100 MG PO (07:49)
[2025-02-28] MEDS: LIPITOR 20 MG PO (07:50)
[2025-02-28] MEDS: COZAAR 50 MG PO (07:50)
[2025-02-28 07:57] LABS: Hematocrit 33.8 % (37.0-47.0); Hemoglobin 11.4 g/dL (12.0-16.0); Mean Corp Hgb Conc. 33.7 g/dL (33.0-37.0); Mean Corpuscular Volume 84.9 fL (81.0-99.0); Platelet Count 252 10^3/uL (130-400); Red Cell Dist. Width 14.0 % (11.5-14.5)
[2025-02-28 08:07] LABS: Blood Urea Nitrogen 15 mg/dl (7-17); Calcium 8.2 mg/dl (8.4-10.2); Carbon Dioxide 22 mmol/L (22-30); Chloride 103 mmol/L (98-107); Estimated Creatinine Clearance 44 ml/min; Glucose 122 mg/dl (70-99); Potassium 3.7 mmol/L (3.5-5.1); Sodium 134 mmol/L (135-145); eGFR 59.12
[2025-02-28 09:00] LABS: Hepatitis B Surface Antigen Negative (Negative)
[2025-02-28 09:17] LABS: Hepatitis A Antibody, Total Negative (Negative); Hepatitis C Antibody Negative (Negative)
--- NOTE | 2025-02-28 09:38 | W.PN.CRS1 ---
Today's Communication / Plan
-
full liquids, possible low residue if tolerates later today
continue IV abx
maintain IR drain
Assessment/Plan
-
Assessment: 71-year-old female with 1 prior attack diverticulitis Mrs. Strauss, quadrant pain pseudodiverticulum is on CT scan as well as associated left adnexal abscess measuring 4 x 3 x 5.8 cm.
02/27/2025- IR drain placement
WBC: 23.1 (23.8, 13.2), CRP 239.9
Plan:
-Cultures from IR are pending
-Continue IV antibiotics
-Advance to full liquids, okay to advance to low residue later if tolerates
-Trend labs
-Appreciate obgyn and GI
-No plans for surgery unless she worsens. Surgery would involve a colectomy with likely colostomy.
Subjective Data
Subjective Data
Date of Service: February 28, 2025
Patient states she is a little sore but overall feels okay. Denies nausea or vomiting. She's a little hungry.
Objective Data
-
Vital Signs
Temp Pulse Resp BP Pulse Ox
98.5 F 69 16 141/66 97
02/28/25 07:28 02/28/25 07:49 02/28/25 07:28 02/28/25 07:49 02/28/25 07:28
Intake & Output
02/27/25 02/28/25 03/01/25
06:59 06:59 06:59
Intake Total 1250 / 1250
Output Total
Balance 1235 / 1235
Intake:
IV fluids (Total) 1150 / 1150
NSS 50 / 50
IV piggybacks 100 / 100
Output:
Drain Output (Total)
Right Lower Abdomen Mansoor-
Lopez Placed in IR
Other:
Number of approximated MODERATE 1
amounts of urine
Lab Results
02/28/25 07:25
02/28/25 07:25
Physical Exam
-
General: No Acute Distress and AOx3
Abdomen: Soft, Non Distended, Tender (mild LLQ) and Other (NICOLE drain - pus mixed with blood)
Skin: Warm and Dry
[2025-02-28 11:14] VITALS: BP 142/62
--- NOTE | 2025-02-28 11:15 | CON.ID ---
Consultation
-
Date/Time Consultation Requested: 02/28/25 10:56
Date/Time Consultation Performed: 02/28/25 11:16
Requesting Provider: Dr Bee
Performing Provider: Dr Carmona
Reason for Consultation: diverticular abscess
Chief Complaint / Past History
Chief Complaint
abdominal pain
History of Present Illness
Ms Selby is a 74 year old female with history of diverticulitis x1 ileitis, hysterectomy and unilateral salpingectomy/oophorectomy, who presented here yesterday for left lower quadrant abdominal pain which began two days before arrival. Pain
radiates to the left lower back. Denies nausea, vomiting, diarrhea, fever, chills, dysuria. She reports similar symptoms in March which resolved with ~10 days of antibiotics. When this pain began she starting taking Augmentin that she had 'left
over' and she took 2-3 doses without significant improvement prompting her to present to the ER for further evaluation.
Last colonoscopy 2013 at that time consistent with new small bowel crohns disease but was lost to follow up. CT 04/09 showed moderate circumferential wall thickening consistent with IBD. Over the last year denies chronic abdominal pain, nausea,
vomiting, diarrhea, melena or hematochezia.
Since arrival here she has been afebrile, bp stable, wbc initially 23.8, hgb 13.4, plt 281, L shift noted, na 131, cr 1.0, crp 236, ua 3-5 wbc/hpf, few bacteria, t bili 0.8, ast 17, alt 14, alk phos 106, hep A/B/C serologies negative, quantiferon
gold pending, 02/27 CT a/p with IV contrast only: left adenexal abscess localized perforation of sigmoid diverticulitis measures 4x3x5.8cm with a fistulous communication, abscess contiguous with the L ovary, 02/27 CT guided drainage of abscess
yielded 6 mL purulent fluid and a catheter was placed a culture is in progress gram stain with moderate GNR and rare GPCs. Outpatient colonoscopy planned in 6-8 weeks, also planned for CTE or MRE for small bowel imaging. Drain put out 15 ccs so
far today. She is currently on zosyn. ID is consulted for assistance with managment.
Past History
Additional Past Medical History:
Hypertension
Osteoporosis
Diverticular Disease
Skin Cancer
Additional Past Surgical History:
Hysterectomy
Pilonidal Cyst
Mohs Surgery
Allergy History:
No Known Allergies Allergy (Verified 02/27/25 01:34)
Medications Reviewed: Yes
Social History
Tobacco: Smoker (1/2 ppd, 30 pyh)
Alcohol: None
Drug: None
Family History
Family History: Not Pertinent
Review of Systems
Review of Systems
Constitutional: Reports No Symptoms
EENT: Reports No Symptoms
Respiratory: Reports No Symptoms
Cardiac: Reports No Symptoms
Abdomen/GI: Reports Abdominal Pain and Constipated
: Reports No Symptoms
Musculoskeletal: Reports No Symptoms
Skin: Reports No Symptoms
Neurological: Reports No Symptoms
Endocrine: Reports No Symptoms
Hematologic/Lymphatic: Reports No Symptoms
Vital Signs
Temp Pulse Resp BP Pulse Ox
97.7 F 62 16 142/62 99
02/28/25 11:14 02/28/25 11:14 02/28/25 11:14 02/28/25 11:14 02/28/25 11:14
Physical Exam
Physical Exam
Constitutional: No Acute Distress
Cardiovascular: Regular Rate and S1/S2; Negative Murmur or Rub
Pulmonary: Clear and Symmetric; Negative Wheezes, Rales or Rhonchi
Gastrointestinal: Soft, Tender (diffuse tenderness), Non Distended and Normal Bowel Sounds
Skin: Warm and Dry; Negative Rash or Jaundice
Lines: Other
abdominal drain - brown/red cloudy output
Lab / Diagnostic Study Results
02/28/25 07:25
02/28/25 07:25
Abs Immat Gran (auto) 0.2 10^3/uL (0-0.05) H 02/27/25 02:04
Absolute Neuts (auto) 20.1 10^3/uL (1.4-6.5) H 02/27/25 02:04
Absolute Lymphs (auto) 1.9 10^3/uL (1.2-3.4) 02/27/25 02:04
Absolute Monos (auto) 1.5 10^3/uL (0.1-0.6) H 02/27/25 02:04
Absolute Basos (auto) 0.1 10^3/uL (0-0.2) 02/27/25 02:04
Immature Gran % 0.6 % (0-0.5) H 02/27/25 02:04
Neutrophils % 84.7 % (42.2-75.2) H 02/27/25 02:04
Lymphocytes % 7.8 % (20.5-51.1) L 02/27/25 02:04
Monocytes % 6.4 % (1.7-9.3) 02/27/25 02:04
Eosinophils % 0.2 % (0-6) 02/27/25 02:04
Basophils % 0.3 % (0-2) 02/27/25 02:04
PT 16.6 Sec (11.4-14.6) H 02/27/25 11:52
INR 1.33 02/27/25 11:52
C-Reactive Protein 236.30 mg/L (0.0-10.00) H 02/28/25 07:25
Ur Squamous Epith Cells 6-10 /LPF (Few) 02/27/25 05:24
Microbiology Results
Micro:
02/27/25 16:45 Wound Culture - Pending
Abscess Gram Stain - Preliminary
Assessment / Plan
Intraabdominal abscess with involvement of the ovary
Perforated Diverticulitis
Crohn's disease - not on immunosuppression
- Leukocytosis
- wound culture in progress gram stain many GNR and some GPCs
- check QTc
- has drain - put out 15 ccs thus far today follow output
- continue zosyn pending cultures
- appreciate GI and colorectal surgery input
--- NOTE | 2025-02-28 12:26 | W.PN.HOSP.TC ---
Today's Communication/Plan
-
Continue antibiotics
Obtain labs from PCP
Full liquid diet
Assessment / Plan
Assessment / Plan
74-year-old female with abdominal pain. She had similar symptoms in March which improved with [address] abdomen pelvis-left adnexal abscess related to the original sigmoid diverticulitis. 4 into 3 and a 5.8 cm between the abscess and the sigmoid colon there is a fistulous communication measuring approximately 1.6 cm the abscess cavity is
contiguous with the left ovary
CVS: S1-S2 normal
Chest: CTA B/L
Abdomen: Soft,, NO Left sided tenderness now, Bowel sounds present
Extremities: No edema
Abscess culture-WBCs, gram-negative rods, gram-positive cocci
# Acute sigmoid diverticulitis with a left adnexal abscess
Status post IR drainage of 6 mL fluid 02/27/2025-cultures with gram-negative rods
Continue Zosyn
White count still elevated
Colorectal surgery and PRIMARY OPERATOR consulted
IRAD consulted for drain
Last colonoscopy was in 2013-patient admits to not following up after that. Biopsy showed active ileitis
Follow clinically
Patient had a bowel movement
Diet advanced to full liquids
May need surgery in the future. Patient is also aware that she needs a colonoscopy in 2 months
Discussed with PRIMARY OPERATOR. Ultrasound of the pelvis if patient does not improve
# Chronic leukocytosis?-Needs outpatient hematology follow-up
# Mild hyponatremia-follow, improved.
# Paroxysmal atrial fibrillation-patient stated she had it once long time ago and does not take any anticoagulation-no EKGs or rhythm strips available which documents A-fib. Needs outpatient cardiology follow-up
# Acute kidney injury-better
# Hypertension-continue atenolol and losartan. Hold hydrochlorothiazide
# Hyperlipidemia-continue statin
# Osteoporosis on ibandronate as outpatient
# Smoker-cessation counseling
# DVT prophylaxis Lovenox
# DNR status
Discussed with nursing
Part of this note was created using voice recognition system. Occasional wrong word or��sound alike� substitutions may have inadvertently occurred due to the inherent limitations of voice recognition software. If noted kindly bring it to my
attention for correction.
Anticipated Discharge: Within 24 hours
Subjective/Interval History
-
Date of Service: February 28, 2025
Objective Data
-
Labs:
Laboratory Results
02/28/25
07:25
WBC 23.1 H
Hgb 11.4 L
Hct 33.8 L
Plt Count 252
Sodium 134 L
Potassium 3.7
Chloride 103
Carbon Dioxide 22
BUN 15
Creatinine 1.0
Glucose 122 H
Calcium 8.2 L
Vital Signs:
Vital Signs
Temp Pulse Resp BP Pulse Ox
97.7 F 62 16 142/62 99
02/28/25 11:14 02/28/25 11:14 02/28/25 11:14 02/28/25 11:14 02/28/25 11:14
I&O
02/27/25 02/28/25 03/01/25
06:59 06:59 06:59
Intake Total 1250 / 1250 290 / 290
Output Total
Balance 1235 / 1235 290 / 290
[2025-02-28] MEDS: LR IV (12:51)
--- NOTE | 2025-02-28 13:25 | W.PN.UPDATE ---
Update Note
Progress Note Update
Subjective:
Pt feeling well s/p IR guided drain placement. Abd completely resolved. Able to tolerate PO. Had BM.
Objective:
AFVSS
Gen: NAD, resting comfortably
Abd: Drain site clean, dry, intact, soft, nontender to palpation, BS present, no guarding/rigidity
Ext: no calf tenderness, non swollen
Assessment:
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
#Acute sigmoid diverticulitis
#Paroxysmal Afib
#LUIS
#Essential HTN
#HLD
#Osteoporosis
Plan:
- observe wound cx/abx per ID/primary team
- no indication for sx intervention at this time
- follow up pelvic US imaging in 4-6 weeks to re-evaluate after abx
- OP follow up with Dr. Beck/SHEARING SHED WORKER upon discharge
[2025-02-28 13:38] LABS: Vitamin D, 25-OH*** < 12.8 ng/mL (30-80)
[2025-02-28 14:58] VITALS: BP 137/62
--- NOTE | 2025-02-28 15:25 | CM ---
Chart reviewed and dc likely tomorrow
Spoke with pt at bedside
Pt is most likely going home with new IR drain and interested in HHC set up for RN visits
CM offered [facility], [facility] and [facility]
Pt is interested in [facility]
Discussed with Attnd Dr. Bee who agrees with plan
Referral sent to [facility]
She would like to drive back home but would ask her team tomorrow
--- NOTE | 2025-02-28 15:54 | VNURNOTE ---
Home Health Liaison met with patient at bedside to discuss [facility] nurse/therapy, visits, schedule and homebound status. Patient is agreeable and understands that visits at home will be 2-3 x per week to assess and teach medical and drain
management. Per chart review, NICOLE drain flushes ordered daily. Pt's primary pharmacy [facility] does not carry them. Requested that Rx be sent to [facility] for NSS flushes. Patient has address for [facility] and is agreeable to go to pick them
up upon DC. Patient is aware that [facility] will contact them for start of care within a few days after discharge from . Provided contact number for [facility].
PM [facility] referral completed in [facility].
--- NOTE | 2025-02-28 16:45 | W.PN.GENERIC ---
Assessment / Plan
-
Pt was given a Radiology post- discharge drain care information sheet which outlines dressing care, cleansing the area, showering, when and who to notify with catheter complications/issues, as well as flushing instruction in real time as well as
review of the the stopcock image.
Pt was concerned about her ability to do this herself and may need visiting nurse.
Physician Progress Note
Subjective
Pt sitting up in bed in NAD. She reports feeling better after drainage catheter was placed.
Objective
Vital Signs
Temp Pulse Resp BP Pulse Ox
97.7 F 67 16 137/62 97
02/28/25 14:58 02/28/25 14:58 02/28/25 14:58 02/28/25 14:58 02/28/25 14:58
Lab Results
02/28/25 07:25
02/28/25 07:25
[2025-02-28] MEDS: LOVENOX 40 MG SC (17:24)
[2025-02-28 19:00] VITALS: BP 138/70
[2025-02-28 23:00] VITALS: BP 148/72
[2025-03-01 03:34] VITALS: BP 142/66
[2025-03-01] MEDS: ZOSYN 50 IV ×2 (03:48→10:44)
[2025-03-01 04:56] VITALS: BMI 29.5
[2025-03-01 07:00] LABS: Hematocrit 31.2 % (37.0-47.0); Hemoglobin 10.7 g/dL (12.0-16.0); Mean Corp Hgb Conc. 34.3 g/dL (33.0-37.0); Mean Corpuscular Volume 83.6 fL (81.0-99.0); Nucleated Red Blood Cells % 0 %; Platelet Count 258 10^3/uL (130-400); Red Cell Dist. Width 13.9 % (11.5-14.5)
[2025-03-01 07:18] LABS: Blood Urea Nitrogen 12 mg/dl (7-17); Calcium 8.0 mg/dl (8.4-10.2); Carbon Dioxide 23 mmol/L (22-30); Chloride 104 mmol/L (98-107); Estimated Creatinine Clearance 44 ml/min; Glucose 94 mg/dl (70-99); Potassium 3.2 mmol/L (3.5-5.1); Sodium 134 mmol/L (135-145); eGFR 59.12
[2025-03-01] MEDS: COZAAR 50 MG PO (07:44)
[2025-03-01] MEDS: LIPITOR 20 MG PO (07:44)
[2025-03-01] MEDS: TENORMIN 100 MG PO (07:45)
[2025-03-01 08:00] VITALS: BP 155/70
--- NOTE | 2025-03-01 10:06 | PN.CDI ---
Addendum entered and electronically signed by Mike Bee MD 03/01/25 13:52:
Documentation is complete at this time.
Original Note:
CDI
- -
CDI:
Physician Documentation Request
Admit Date: 02/27/25 04:46
Dear Doctor Cristal,
Hospitalist progress note includes a diagnosis of LUIS.
Creatinine results:
Laboratory Tests
02/27/25 02/27/25 02/28/25
02:04 14:16 07:25
Creatinine 1.1 H 1.0 1.0
03/01/25
06:23
Creatinine 1.0
Criteria for LUIS*
1 Increase in serum creatinine by > or = to 0.3 mg/dL (> or = to 26.5 micromol/L) within 48 hours, OR
2 Increase in serum creatinine to > or = to 1.5 times baseline, which is known or presumed to have occurred within 7 days, OR
3 Urine volume < 0.5 nL/kg/hour for six hours
Based on the above information and the recognized standard for LUIS could you please verify this diagnoses is still accurate and reflective of the patient�s condition to ensure quality of the medical record.
Please clarify in the Progress Notes:
�LUIS is/was present and is a clinical diagnosis based on (please include this additional support in the medical record)
�After study LUIS has been ruled out
�Other
Use of terms such as suspected, likely, concern for, or probable (associated with a specific diagnosis that is being evaluated, monitored, or treated as if it exists) are acceptable and can be coded in the inpatient setting, when documented at the
time of discharge.
Thank you,
Bernice Torrez RN, BSN
CDI Specialist
tiger text
Please use your independent medical judgment in providing your response.
--- NOTE | 2025-03-01 10:33 | CM ---
CM reviewed chart, patient seen bedside.
Patient reports she is for discharge today, will transport self home.
IMM verbally reviewed, provided with copy, placed in chart.
[facility] to follow upon d/c.
CM will continue to follow.
Plan; home with [facility]
--- NOTE | 2025-03-01 10:45 | W.PN.CRS1 ---
Today's Communication / Plan
-
Okay for discharge from our perspective
Maintain IR drain at home, will need an outpatient drain study
Antibiotics per ID
GI workup as outpatient
Assessment/Plan
-
Assessment: 71-year-old female with 1 prior attack diverticulitis Mrs. Strauss, quadrant pain pseudodiverticulum is on CT scan as well as associated left adnexal abscess measuring 4 x 3 x 5.8 cm.
02/27/2025- IR drain placement
WBC: 16.1 (23.1, 23.8, 13.2)
Plan:
-Cultures from IR are pending
-Continue IV antibiotics
-Advance to full liquids, okay to advance to low residue later if tolerates continue low residue diet
-Trend labs
-Appreciate obgyn and GI. Will need GI workup as an outpatient.
-No plans for surgery during this admission. Okay for discharge from our standpoint. Follow-up in the office with Dr. Mead in a few weeks. Continue low residue diet. Antibiotics per ID. Continue IR drain at home.
Subjective Data
Subjective Data
Date of Service: March 01, 2025
Patient states is that she is having some loose black stools. Her pain is controlled. Denies nausea or vomiting. She is tolerating a diet. Her abdominal pain has improved. She just describes soreness around the drain.
Objective Data
-
Vital Signs
Temp Pulse Resp BP Pulse Ox
98.6 F 71 8 155/70 96
03/01/25 08:00 03/01/25 08:00 03/01/25 08:00 03/01/25 08:00 03/01/25 09:17
Intake & Output
02/28/25 03/01/25 03/02/25
06:59 06:59 06:59
Intake Total 1250 / 1250 1290 / 1290 10 / 10
Output Total
Balance 1235 / 1235 1250 / 1250 -20 / -20
Intake:
Oral fluids 1180 / 1180
IV fluids (Total) 1150 / 1150
NSS 50 / 50
IV piggybacks 100 / 100 100 / 100
Amount instilled into Drain (
Total)
Left Lower Abdomen
Output:
Drain Output (Total) 30
Left Lower Abdomen
Right Lower Abdomen Mansoor-
Lopez Placed in IR
Other:
Number of approximated MODERATE 1 3
amounts of urine
Number of approximated LARGE 1
amounts of urine
Lab Results
03/01/25 06:23
03/01/25 06:23
Physical Exam
-
General: No Acute Distress and AOx3
Abdomen: Soft, Non Distended, Non Tender and Other (NICOLE with some mild pus/SS output)
Skin: Warm and Dry
--- NOTE | 2025-03-01 10:50 | W.PN.ID1 ---
Date of Service
Date of Service: March 01, 2025
Today's Communication
- flushing instructions per IR; patient to track drain output daily and when output <15 ccs/day x3 days then call office [phone] for script for drain removal
- patient feels she may need visiting RN for drain management
- start augmentin for a 4 week course 02/26-03/25
- agree with repeat imaging in 4-6 weeks
- follow up in 4-6 weeks
Assessment / Plan
Intraabdominal abscess with involvement of the ovary
Perforated Diverticulitis
Crohn's disease - not on immunosuppression
- Leukocytosis
- wound culture in progress gram stain many GNR and some GPCs
- check QTc
- has drain - put out 50 ccs thus far today follow output
- flushing instructions per IR; patient to track drain output daily and when output <15 ccs/day x3 days then call office [phone] for script for drain removal
- patient feels she may need visiting RN for drain management
- start augmentin for a 4 week course 02/26-03/25
- agree with repeat imaging in 4-6 weeks
- follow up in 4-6 weeks with cbc, bmp, esr, crp shortly prior to that visit
Chief Complaint
-: Other (intraabdominal abscess)
Subjective / Review of Systems
afebrile
bp stable
drain output 50 ccs thus far today
no events overnight
Vital Signs / Physical Exam
Vital Signs
Vital Signs
Temp Pulse Resp BP Pulse Ox
98.6 F 71 8 155/70 96
03/01/25 08:00 03/01/25 08:00 03/01/25 08:00 03/01/25 08:00 03/01/25 09:17
Physical Exam
Constitutional: No Acute Distress
Cardiovascular: Regular Rate and S1/S2; Negative Murmur or Rub
Pulmonary: Clear and Symmetric; Negative Wheezes or Rales
Gastrointestinal: Soft, Non Tender, Non Distended and Normal Bowel Sounds
Skin: Warm and Dry; Negative Rash or Jaundice
Physical Exam:
drain with feculent output about 15 ccs of opaque fluid in the drain
Objective Data
Lab Data
Lab Results
03/01/25 06:23
03/01/25 06:23
PT 16.6 Sec (11.4-14.6) H 02/27/25 11:52
INR 1.33 02/27/25 11:52
Estimated Creat Clear 44 ml/min 03/01/25 06:23
Total Bilirubin 0.8 mg/dl (0.2-1.3) 02/27/25 02:04
AST 17 U/L (14-36) 02/27/25 02:04
ALT 14 U/L (0-35) 02/27/25 02:04
Alkaline Phosphatase 106 U/L (38-126) 02/27/25 02:04
C-Reactive Protein 236.30 mg/L (0.0-10.00) H 02/28/25 07:25
Most recent labs reviewed.
Wound/abscess/other Cult Final 03/01/25-808
Many Escherichia coli
Organism 1 Escherichia coli
1. Escherichia coli
M.I.C. RX
--------- ---
Amoxicillin/Potas. Clavulanate <=8/4 S
Ampicillin <=8 S
Ampicillin/Sulbactam <=4/2 S
Aztreonam <=4 S
Cefazolin <=2 S
Ertapenem <=0.5 S
Ciprofloxacin <=0.25 S
Gentamicin <=2 S
Meropenem <=1 S
Piperacillin/Tazobactam <=8 S
Tetracycline <=4 S
Tobramycin <=2 S
Trimethoprim/Sulfamethoxazole <=2/38 S
Micro Results:
02/27/25 16:45 Wound Culture - Final
Abscess Escherichia coli
Gram Stain - Final
[2025-03-01 11:26] LABS: Magnesium 1.5 mg/dl (1.6-2.3)
[2025-03-01 12:00] VITALS: BP 139/66
[2025-03-01] MEDS: AUGMENTIN 875 MG/125 MG 1 TABLET PO (12:04)
[2025-03-01] MEDS: KCL 40 MEQ PO (12:04)
--- NOTE | 2025-03-01 13:02 | W.PN.HOSP.TC ---
Addendum entered and electronically signed by Mike Bee MD 03/01/25 13:20:
Left message for [phone] Arcenio
Original Note:
Today's Communication/Plan
-
Replace Mag and K
Discharge
Assessment / Plan
Assessment / Plan
74-year-old female with abdominal pain. She had similar symptoms in March which improved with [address] abdomen pelvis-left adnexal abscess related to the original sigmoid diverticulitis. 4 into 3 and a 5.8 cm between the abscess and the sigmoid colon there is a fistulous communication measuring approximately 1.6 cm the abscess cavity is
contiguous with the left ovary
CVS: S1-S2 normal
Chest: CTA B/L
Abdomen: Soft,, NO Left sided tenderness now, Bowel sounds present
Extremities: No edema
Drain with serosanguineous drainage
Abscess culture-E. coli
# Acute sigmoid diverticulitis with a left adnexal abscess
Status post IR drainage of 6 mL fluid 02/27/2025-cultures with E. coli
Zosyn to be changed to Augmentin till 04/04/2024
White count still elevated
Colorectal surgery and CRANE CREW SUPERVISOR consults appreciated
IRAD placed the drain
Last colonoscopy was in 2013-patient admits to not following up after that. Biopsy showed active ileitis
Tolerating diet
Patient is aware that she needs to flush the drain with 5 mL nss ( had pain with 10 ml) daily. She should also keep track of how much drainage she gets. She is aware that eventually the drain will need to come out. She is also aware that she
needs to get a colonoscopy done as outpatient and also follow-up with infectious disease, GI and colorectal surgery.
# Hypomagnesemia and hypokalemia-replace
# Chronic leukocytosis?-Needs outpatient hematology follow-up if this does not resolve
# Mild hyponatremia-follow, improved. Discontinue hydrochlorothiazide
# Paroxysmal atrial fibrillation-patient stated she had it once long time ago and does not take any anticoagulation-no EKGs or rhythm strips available which documents A-fib. Needs outpatient cardiology follow-up
# Acute kidney injury-better
# Hypertension-continue atenolol and losartan. Hold hydrochlorothiazide for discharge also
# Hyperlipidemia-continue statin
# Osteoporosis on ibandronate as outpatient
# Smoker-cessation counseling
# DVT prophylaxis Lovenox
# DNR status
Discussed with visiting nurse services
Normal saline flush sent to pharmacy
Detail discussed with the patient regarding follow-up and how to care for her flush
Discussed with GI
Discussed with infectious disease
Case management consult for visiting nurses
Discussed with nursing
More than 30 minutes spent in discharge including
Final examination of the patient
Summarizing hospital stay
Instructions for continuing care to all relevant caregivers
Preparation of discharge records, prescriptions, and referral forms
Part of this note was created using voice recognition system. Occasional wrong word or��sound alike� substitutions may have inadvertently occurred due to the inherent limitations of voice recognition software. If noted kindly bring it to my
attention for correction.
Anticipated Discharge: Today
Subjective/Interval History
-
Date of Service: March 01, 2025
Objective Data
-
Labs:
Laboratory Results
03/01/25
06:23
WBC 16.2 H
Hgb 10.7 L
Hct 31.2 L
Plt Count 258
Sodium 134 L
Potassium 3.2 L
Chloride 104
Carbon Dioxide 23
BUN 12
Creatinine 1.0
Glucose 94
Calcium 8.0 L
Vital Signs:
Vital Signs
Temp Pulse Resp BP Pulse Ox
98.5 F 70 16 139/66 95
03/01/25 12:00 03/01/25 12:00 03/01/25 12:00 03/01/25 12:00 03/01/25 12:00
I&O
02/28/25 03/01/25 03/02/25
06:59 06:59 06:59
Intake Total 1250 / 1250 1290 / 1290
Output Total
Balance 1235 / 1235 1250 / 1250 -20 / -20
[2025-03-01] MEDS: MAGNESIUM SULFATE 50 IV (13:47)
--- NOTE | 2025-03-01 14:53 | W.PN.OBG.DWH ---
Today's Communication / Plan
-
D/c home
Assessment/Plan
-
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
- Drain cx +E. Coli. Per ID patient to be d/c on Augmentin for 4 weeks
-drain care and removal per IR instructions. VN will assist patient
-f/u with repeat imaging in 4-6 weeks which would be after completion of antibiotics, to assess for resolution of abscess
-f/u with TAPPER HELPER and Colorectal outpatient. Contact info in her dc paperwork.
Subjective Data
-
Feels well. No abdominal pain today. Tolerating PO intake. No n/v/f/c. +ambulation +void. +BM. Ready for dc today
Objective Data
-
Laboratory Results
03/01/25 06:23
03/01/25 06:23
Vital Signs
Temp Pulse Resp BP Pulse Ox
98.5 F 70 16 139/66 95
03/01/25 12:00 03/01/25 12:00 03/01/25 12:00 03/01/25 12:00 03/01/25 12:00
IR Drain: 10cc emptied earlier. Currently approx 10-15cc of thin greenish colored liquid in bulb
Wound Culture: +E. coli
Gen: nad well appearing
Abd: soft, nt, nd, no r/g. drain in place
--- NOTE | 2025-03-01 15:34 | W.DS.TRANS ---
Addendum entered and electronically signed by Mike Bee MD 03/02/25 15:10:
Dictation- [id number]
Original Note:
DC Summary - Back End Engineer
-
Discharge Instructions:
Sleep Apnea Risk Low
Discharge Diagnosis/Procedures intraabdominal abscess, perforated
diverticulitis
So mild hyponatremia
Low potassium and magnesium
Dehydration
Hypertension
Hyperlipidemia
Diet Low Residue
Activity As tolerated
Driving Restrictions As prior to admission
Blood Work cbc,bmp 5 days ( script from PCP)
Others Tests Ultrasound of the pelvis to evaluate ovary in 4
weeks..
Other Services VN
Instructions:
Stand-Alone Forms:
Changes to Home Medications: Yes
Discharge Medications:
DC Medications w/original date entered in [employer]
acetaminophen 500 mg tablet 1,000 mg PO BID PRN mild pain 02/27/25
amoxicillin 875 mg-potassium clavulanate 125 mg tablet 1 tab PO Q12 Infection #43 tabs 03/01/25
atenolol 50 mg tablet 100 mg (2 x 50 mg) PO DAILY Blood pressure #0 tabs 03/01/25
ibandronate 150 mg tablet 150 mg PO MONTHLY bone #0 tabs 03/01/25
losartan 50 mg tablet 100 mg (2 x 50 mg) PO DAILY Blood pressure #0 tabs 03/01/25
magnesium oxide 500 mg capsule 500 mg PO DAILY low mag #7 caps 03/01/25
potassium chloride 20 mEq tablet,extended release(part/cryst) (Klor-Con M) 20 meq PO DAILY low K #3 tabs 03/01/25
simvastatin 40 mg tablet 40 mg PO DAILY High cholesterol #0 tabs 03/01/25
sodium chloride 0.9 % (flush) (BD PosiFlush Normal Saline 0.9 % injection syringe) 5 ml intra-catheter PER PROTOCOL drain #300 mL 03/01/25
Home Medication Changes
Augmentin is new
HCTZ discontinued
Pending Results: No
[2025-03-01 16:00] VITALS: BP 161/80
[2025-03-03 05:36] LABS: Calprotectin, Fecal 487 ug/g (<=49)
== END 2025-03-01 16:53 | disposition home health service (06) | DRG 391 ==
LOC: 1 ACUTE 04:46
PROVIDERS: Physician Assistant; Radiology Vascular & Interventional Radiology; ADMITTING PHYSICIAN Hospitalist; ATTENDING PHYSICIAN Hospitalist; CONSULT PHYSICIAN Internal Medicine; CONSULT PHYSICIAN Surgery; EMERGENCY PHYSICIAN Emergency Medicine; FAMILY PHYSICIAN Physician Assistant Medical; OTHER PHYSICIAN Obstetrics & Gynecology; OTHER PHYSICIAN Student in an Organized Health Care Education/Training Program
PROC: 0W9G30Z Drainage of Peritoneal Cavity with Drainage Device, Percutaneous Approach (ICD-10-PCS; 2025-02-27)
DX: K57.20 Diverticulitis of large intestine with perforation and abscess without bleeding (principal); K65.1 Peritoneal abscess; N17.9 Acute kidney failure, unspecified; E87.1 Hypo-osmolality and hyponatremia; K63.2 Fistula of intestine; I48.0 Paroxysmal atrial fibrillation; E78.00 Pure hypercholesterolemia, unspecified; I10 Essential (primary) hypertension; F17.210 Nicotine dependence, cigarettes, uncomplicated; N70.93 Salpingitis and oophoritis, unspecified; B96.20 Unspecified Escherichia coli [E. coli] as the cause of diseases classified elsewhere; E83.42 Hypomagnesemia; E87.6 Hypokalemia; R91.8 Other nonspecific abnormal finding of lung field; D18.03 Hemangioma of intra-abdominal structures; M81.0 Age-related osteoporosis without current pathological fracture; Z66 Do not resuscitate; Z60.2 Problems related to living alone; Z85.828 Personal history of other malignant neoplasm of skin; Z90.710 Acquired absence of both cervix and uterus; Z79.899 Other long term (current) drug therapy; Z86.0100 Personal history of colon polyps, unspecified
CPT/HCPCS: 49406; 74177; 80048; 80053; 81003; 81015; 82306; 83690; 83735; 83993; 85025; 85027; 85610; 86140; 86480; 86704; 86706; 86708; 86803; 87070; 87077; 87186; 87205; 87340; 93005; 96365; 96375; 99152; 99153; 99285; Q9967